=== PATIENT | male | born 1995 | race Caucasian/White ===

== ENCOUNTER 2020-12-15 22:11 | Emergency (ER) | payer OTHER ==
[~2020-12-15] VITALS: Ht 175.3 cm; Wt 72.6 kg
[2020-12-15 22:19] VITALS: BP 133/85
--- NOTE | 2020-12-15 22:19 | NUR ---
TO BED AMBULATORY
--- NOTE | 2020-12-15 22:30 | NUR ---
PT. IS A 25 Y/O MALE WHO CAME TO ED WITH C/O OF NAUSEA AND VOMITING. PT. STATES THAT HE HAS NOT BEEN ABLE TO EAT OR DRINK ANYTHING SINCE WEDNESDAY. PT. RATES HIS PAIN AT 7/10 ON THE PAIN SCALE. HE DESCRIBES HIS PAIN IN THE MIDDLE OF HIS ABDOMEN AND STATES "IT FEELS LIKE CRAMPS." SKIN IS PINK/WARM/DRY; AAOX4 WITH EVEN AND STEADY GAIT; HR EVEN AND REGULAR; PT DENIES ANY FEVER, CP, SOB, OR COUGH AT THIS TIME; VSS; PATIENT POSITIONED FOR COMFORT; HOB ELEVATED; BEDRAILS UP X1; BED DOWN. ER MD MADE AWARE OF PT STATUS. PMH: DM 2 ALLERGIES: PENICILLINS
--- NOTE | 2020-12-15 22:30 | NUR ---
Dr. Eagle examining patient.
[2020-12-15] MEDS ORDERED: ONDANSETRON 4 MG ODT PO ONE (22:40)
[2020-12-15] MEDS ORDERED: DICYCLOMINE HCL LIQUID 20 MG, ALUMINUM HYD/MAG/SIMETHICONE 30 ML, LIDOCAINE VISCOUS 2% ... PO ONE ×3 (22:40)
[2020-12-15] MEDS ORDERED: ALUMINUM HYD/MAG/SIMETHICONE 30 ML UDC ONE ×2 (22:51→22:56)
[2020-12-15] MEDS ORDERED: DICYCLOMINE HCL LIQUID 10 MG/5 ML UDC ONE (22:51)
[2020-12-15] MEDS ORDERED: LIDOCAINE VISCOUS 2% 20 ML UDC ONE (22:51)
[2020-12-15] MEDS ORDERED: ONDA8TAB87 PO (22:56)
[2020-12-15] MEDS ORDERED: TRAM50TA3 PO (22:56)
[2020-12-15 23:08] VITALS: BP 133/85
--- NOTE | 2020-12-15 23:08 | NUR ---
Patient discharged with v/s stable. Written and verbal after care instructions given and explained. Patient alert, oriented and verbalized understanding of instructions. Ambulatory with steady gait. All questions addressed prior to discharge. Patient advised to follow up with PMD. Rx of ZOFRAN AND TRAMADOL HCL given. Patient educated on indication of medication including possible reaction and side effects. Opportunity to ask questions provided and answered.
== END 2020-12-15 23:08 | disposition home or self-care (01) ==
LOC: MED 22:11
DX: R10.13 Epigastric pain (principal); R11.2 Nausea with vomiting, unspecified; R07.9 Chest pain, unspecified; F12.90 Cannabis use, unspecified, uncomplicated; E11.9 Type 2 diabetes mellitus without complications; Z88.0 Allergy status to penicillin; Z90.49 Acquired absence of other specified parts of digestive tract
CPT/HCPCS: 99283; Q0162